=== PATIENT | female | born 1990 | race Caucasian/White ===

== ENCOUNTER 2024-04-11 10:44 | Emergency (ER) | payer OTHER, SELFPAY ==
[2024-04-11 11:08] VITALS: BP 127/87
--- NOTE | 2024-04-11 13:36 | ED.GENMED ---
History of Present Illness
General
Chief Complaint: Headache
Source: patient
Exam Limitations: none
Time Seen by Provider: 04/11/24 13:21
History of Present Illness
History of Present Illness:
33-year-old female presents with multiple complaints. She notes that muscle aches in her shoulders neck and arms. She also notes occasional dizziness and numbness around her face. She has had a facility right now. She was given Ativan last night
for anxiety she has had symptoms ongoing for couple months. She is concerned about other underlying processes. She takes no other medication. No other complaints at this time
Phy Exam
Physical Exam
Physical Exam:
General: Well-appearing female no acute respiratory distress HEENT: Normocephalic atraumatic
Heart: Regular rate and rhythm no murmurs
Lungs: Clear no wheeze
Neurologic exam: Alert and oriented no facial asymmetry good muscle tone.
Skin: warm, no rash
Ext: no cyanosis
Course
Orders/Labs/Results
Orders:
Orders
04/11/24 13:34
CR Cervical Spine 2 or 3 Vw Urgent
Comment:
Reason For Exam: neck pain
CR Thoracic Spine 3 Views Urgent
Comment:
Reason For Exam: mid back pain
04/11/24 13:35
CT Head W/o Iv Contrast Urgent
Comment:
Reason For Exam: dizzy
Test Result ONCE
04/11/24 14:04
CPK [Creatine Phosphokinase] Urgent
CRP [C-Reactive Protein] Stat
Complete Blood Count/With Diff Urgent
Comprehensive Metabolic Panel Urgent
HCG, Serum Qualitative Screen Urgent
Sed Rate [Erythrocyte Sed Rate] Stat
Abnormal Lab Results
04/11/24
14:04
RBC 5.78 H 10^6/uL
(4.20-5.40)
Hgb 11.7 L g/dL
(12.0-16.0)
MCV 64.4 L fL
(81.0-99.0)
MCH 20.2 L pg
(27.0-31.0)
MCHC 31.5 L g/dL
(33.0-37.0)
RDW 16.0 H %
(11.5-14.5)
MPV 11.3 H fL
(7.4-10.4)
Absolute Monos (auto) 0.7 H 10^3/uL
(0.1-0.6)
Lymphocytes % 19.4 L %
(20.5-51.1)
Monocytes % 9.4 H %
(1.7-9.3)
Total Bilirubin 2.9 H mg/dl
(0.2-1.3)
Creatine Kinase 24 L U/L
(30-135)
04/11/24 14:04
04/11/24 14:04
Vital Signs
Initial and Last Documented VS:
Initial Vital Signs
Temp Pulse Resp BP Pulse Ox
98.1 F 97 16 127/87 100
04/11/24 11:08 04/11/24 11:08 04/11/24 11:08 04/11/24 11:08 04/11/24 11:08
Last Documented Vital Signs
Temp Pulse Resp BP Pulse Ox
98.1 F 97 16 127/87 100
04/11/24 11:08 04/11/24 11:08 04/11/24 11:08 04/11/24 11:08 04/11/24 11:08
MDM/Problems Addressed
Differential Diagnosis Includes:
Patient with multiple complaints. Etiology unclear. Will check broad workup including dorsalis inflammatory markers basic labs test CT of head x-ray of neck and back.
*Critical Care Note
Total Time (30-74mins, 75-104mins- exclusive of procedures): Not Applicable
Update Note
Update Note:
Workup here extensive and unremarkable. CT head x-ray cervical spine thoracic spine negative. Labs reviewed without significant electrolyte abnormality or evidence of rhabdomyolysis. Patient quite concerned about her symptoms however no evidence
of any serious etiology on today's workup. Recommend she follow-up with her family doctor. No indication for admission. Stable for discharge
ED Attending Note
-
Portions of this chart may have been created with voice recognition software.� Occasional wrong word or��sound alike� substitutions may have occurred due to the inherent limitations of voice recognition software.
Discharge Plan
Departure
Patient Disposition: Home (Routine Discharge)
Date of Disposition: 04/11/24
Time of Disposition: 15:23
Patient with high blood pressure during this ER visit?: No
Discharge Problem:
Tremor
Instructions: Fatigue
Referrals:
NONE,* [Family Provider] -
Activity Restrictions/Additional Instructions:
Please return here for any worsening symptoms. Follow-up with your doctor otherwise
Discharge Date and Time
Print Language: WOLOF
[2024-04-11 14:20] LABS: % Basophils 0.6 % (0-2); % Eosinophils 2.4 % (0-6); % Immature Granulocytes 0.3 % (0-0.5); % Lymphocytes 19.4 % (20.5-51.1); % Monocytes 9.4 % (1.7-9.3); % Neutrophils 67.9 % (42.2-75.2); Absolute Eosinophils 0.2 10^3/uL (0-0.7); Absolute Lymphocytes 1.4 10^3/uL (1.2-3.4); Absolute Monocytes 0.7 10^3/uL (0.1-0.6); Absolute Neutrophils 4.9 10^3/uL (1.4-6.5); Hematocrit 37.2 % (37.0-47.0); Hemoglobin 11.7 g/dL (12.0-16.0); Mean Corp Hgb Conc. 31.5 g/dL (33.0-37.0); Mean Corpuscular Hgb 20.2 pg (27.0-31.0); Mean Corpuscular Volume 64.4 fL (81.0-99.0); Mean Platelet Volume 11.3 fL (7.4-10.4); Nucleated Red Blood Cells % 0 %; Platelet Count 299 10^3/uL (130-400); Red Blood Cell Count 5.78 10^6/uL (4.20-5.40); White Blood Cell Count 7.2 10^3/uL (4.8-10.8)
[2024-04-11 14:24] LABS: Erythrocyte Sed Rate 7 mm/hour (0-20)
[2024-04-11 14:27] LABS: HCG, Serum Qualitative Screen Negative
[2024-04-11 14:30] LABS: C-Reactive Protein < 5.00 mg/L (0.0-10.00)
[2024-04-11 14:31] LABS: ALT (SGPT) 18 U/L (0-35); AST (SGOT) 19 U/L (14-36); Albumin 4.7 g/dl (3.5-5.0); Alkaline Phosphatase 64 U/L (38-126); Blood Urea Nitrogen 9 mg/dl (7-17); Calcium 9.6 mg/dl (8.4-10.2); Carbon Dioxide 29 mmol/L (22-30); Chloride 100 mmol/L (98-107); Creatine Phosphokinase 24 U/L (30-135); Glucose 95 mg/dl (70-99); Potassium 4.3 mmol/L (3.5-5.1); Sodium 137 mmol/L (135-145); Total Bilirubin 2.9 mg/dl (0.2-1.3); Total Protein 7.5 g/dl (6.3-8.2); eGFR > 60.00
[2024-04-11 15:55] VITALS: BP 124/77
[2024-04-11 21:07] LABS: TSH Reflex To Free T4 1.03 uIU/ml (0.47-4.68)
== END 2024-04-11 15:55 | disposition home or self-care (01) ==
LOC: EMR 10:44
PROVIDERS: Physician Assistant; EMERGENCY PHYSICIAN Student in an Organized Health Care Education/Training Program
DX: R25.1 Tremor, unspecified (principal)
CPT/HCPCS: 99285; 70450; 72040; 72072; 80053; 82550; 84443; 84703; 85025; 85652; 86140